=== PATIENT | female | born 1970 | race Caucasian/White ===

== ENCOUNTER 2023-09-03 05:16 | Emergency (ER) | payer BC ==
[~2023-09-03] VITALS: Ht 172.7 cm; Wt 85.0 kg
[2023-09-03 05:59] VITALS: BP 164/98
[2023-09-03 06:04] LABS: BASO% 0.5 % (0-3); EOS% 2.4 % (0-8); HEMATOCRIT 41.7 % (37.0-47.0); HEMOGLOBIN 14.2 g/dl (12.0-16.0); IMMATURE GRANULOCYTES 0.1 % (0.0-5.0); LYMPH% 20.9 % (15-41); MEAN CELL VOLUME 92.5 fL CALC (80.0-100.0); MEAN CORPUSCULAR HGB 31.5 pG CALC (26.0-32.0); MEAN CORPUSCULAR HGB CONC 34.1 g/dL CAL (32.0-36.0); MONO% 6.6 % (2-13); NEUT# 5.2 thou/uL (2.00-7.15); NEUT% 69.5 % (42-76); RED BLOOD COUNT 4.51 mill/uL (4.20-5.60); RED CELL DISTRI WIDTH 11.7 % (11.5-15.5)
[2023-09-03 06:22] LABS: ALBUMIN 4.6 g/dL (3.2-5.0); ALKALINE PHOSPHATASE 65 u/l (38-126); ANION GAP 14 (6-22 (CALC)); BILIRUBIN, TOTAL 0.5 mg/dL (0.02-1.3); BUN 21 mg/dL (7-17); BUN/CREATININE RATIO 29 (12-20 (CALC)); CARBON DIOXIDE 26 mmol/l (22-30); CHLORIDE 106 mmol/l (95-108); CREATININE 0.7 mg/dL (0.5-1.0); GFR FOR AFR.AMER. > 60 ML/MIN (>=60 (CALC)); GFR OTHER RACES > 60 ML/MIN (>=60 (CALC)); POTASSIUM 4.4 mmol/l (3.5-5.1); SGOT/AST 52 u/l (14-36); SODIUM 142 mmol/l (137-146); TOTAL PROTEIN 7.3 g/dL (6.3-8.2)
[2023-09-03 06:47] LABS: URINE BLOOD DIPSTICK Large (NEGATIVE); URINE GLUCOSE - DIPSTICK Negative (NEGATIVE); URINE KETONE Negative (NEGATIVE); URINE LEUK ESTERASE Trace (NEGATIVE); URINE NITRITE - DIPSTICK Negative (Negative); URINE PROTEIN - DIPSTICK 30 mg/dL (NEG-TRACE); URINE SPECIFIC GRAVITY >=1.030; URINE UROBILINOGEN - DIPSTICK 0.2 E.U./dL (0.2)
[2023-09-03 06:58] LABS: URINE COLOR Yellow
[2023-09-03 06:59] LABS: URINE BILIRUBIN - DIPSTICK Negative (NEGATIVE)
[2023-09-03 07:00] LABS: URINE EPITHELIAL CELLS FEW EPI/hpf (0-FEW); URINE RBC >100 RBC/hpf (0-5)
[2023-09-03 07:01] VITALS: BP 173/77
[2023-09-03 07:01] LABS: URINE BACTERIA MODERATE hpf
[2023-09-03 07:31] VITALS: BP 166/79
[2023-09-03 08:01] VITALS: BP 149/83
[2023-09-03 08:31] VITALS: BP 161/90
[2023-09-03] MEDS ORDERED: OMNI-PAC300 MG PO (08:36)
[2023-09-03] MEDS ORDERED: TAMSULOSIN0.4 MG PO (08:36)
[2023-09-03] MEDS ORDERED: TORADOL PO (08:36)
[2023-09-03] MEDS ORDERED: ZOFRAN4 MG/TAB PO (08:36)
[2023-09-03 09:30] VITALS: BP 161/90
== END 2023-09-03 09:40 | disposition home or self-care (01) | DRG 690 ==
LOC: ED 05:16
PROVIDERS: Emergency Medicine
DX: N13.6 Pyonephrosis (principal); I10 Essential (primary) hypertension; E11.9 Type 2 diabetes mellitus without complications; E78.5 Hyperlipidemia, unspecified; Z90.49 Acquired absence of other specified parts of digestive tract